=== PATIENT | male | born 1970 | race African-American/Black ===

== ENCOUNTER 2017-04-03 14:37 | Emergency (ER) | payer BC ==
[2017-04-03 14:54] VITALS: PULSE 77; TEMP 98; BMI 23.4
[2017-04-03 14:57] VITALS: BP 150/94
--- NOTE | 2017-04-03 15:47 | PDOC ---
History of Present Illness - General Chief Complaint: Injury Stated Complaint: SIDE PAIN Time Seen by Provider: 04/03/17 15:28 History Source: Patient Exam Limitations: No Limitations - History of Present Illness Initial Comments: 04/03/17 15:45 Patient is a 46-year-old male, denies any significant medical history currently on no medications states that he was playing around within the person fell backwards and her knees fell onto the right side of his chest causing pain to ribs 2 weeks ago, now with pain on inspiration reproducible movement. Denies any respiratory difficulty, no fever. Past Medical History: Denies. Allergies: No known allergies Medications: None Family History: Non-contributory Social History: Denies smoking, alcohol use, or IVDU Review of Systems GENERAL/CONSTITUTIONAL: No fever or chills. No weakness. No weight change. HEAD, EYES, EARS, NOSE AND THROAT: No change in vision. No ear pain or discharge. No sore throat. CARDIOVASCULAR: No chest pain or shortness of breath. RESPIRATORY: No cough, wheezing, or hemoptysis. GASTROINTESTINAL: No nausea, vomiting, diarrhea or constipation. No rectal bleeding. GENITOURINARY: No dysuria, frequency, or change in urination. MUSCULOSKELETAL: No joint or muscle swelling or pain. No neck or back pain. Right lateral torso rib pain SKIN: No rash or easy bruising. No erythema no bruising. NEUROLOGIC: No headache, vertigo, loss of consciousness, or loss of sensation. PSYCHIATRIC: No depression or anxiety. ENDOCRINE: No increased thirst. No abnormal weight change. HEMATOLOGIC/LYMPHATIC: No anemia, easy bleeding, or history of blood clots. ALLERGIC/IMMUNOLOGIC: No hives or skin allergy. No latex allergy. Physical Exam: GENERAL: The patient is awake, alert, and fully oriented, in no acute distress. HEAD: Normal with no signs of trauma. EYES: Pupils equal, round and reactive to light, extraocular movements intact, sclera anicteric, conjunctiva clear. ENT: Ears normal, nares patent, oropharynx clear without exudates. Moist mucous membranes. No uvula deviation NECK: Normal range of motion, supple without lymphadenopathy, JVD, or masses. LUNGS: Breath sounds equal, clear to auscultation bilaterally. No wheezes, and no crackles. HEART: Regular rate and rhythm, normal S1 and S2 without murmur, rub or gallop. ABDOMEN: Soft, nontender, normoactive bowel sounds. No guarding, no rebound. No masses. No bruising or abrasions MUSCULOSKELETAL: Normal range of motion, no edema. No clubbing or cyanosis. No cords, erythema, or tenderness. No CVA Tenderness with fist palpation, pain on palpation and movement to right lateral torso, right ribs. Right lateral torso rib pain] NEUROLOGICAL: Cranial nerves II through XII grossly intact. Normal speech, nomal gait. SKIN: Warm, Dry, normal turgor, no rashe or lesions noted. Past History - Past Medical History Allergies/Adverse Reactions: Allergies Allergy/AdvReac Type Severity Reaction Status Date / Time No Known Allergies Allergy Verified 04/03/17 14:54 Home Medications: Ambulatory Orders Naproxen [Naprosyn -] 500 mg PO BID #20 tablet 04/03/17 Thyroid Disease: No - Surgical History Abdominal Surgery: Yes (umbilical hernia repaired) - Psycho/Social/Smoking Cessation Hx Anxiety: No Suicidal Ideation: No Smoking History: Never smoked Have you smoked in the past 12 months: No Information on smoking cessation initiated: No Hx Alcohol Use: No Drug/Substance Use Hx: No Substance Use Type: None *Physical Exam - Vital Signs Last Vital Signs Temp Pulse Resp BP Pulse Ox 98.0 F 77 18 150/94 100 04/03/17 14:51 04/03/17 14:51 04/03/17 14:51 04/03/17 14:56 04/03/17 14:51 ED Treatment Course - RADIOLOGY Radiology Studies Ordered: Category Date Time Status RIBS RIGHT SIDE [RAD] Stat Radiology 04/03/17 15:33 Ordered Medical Decision Making - Medical Decision Making 04/03/17 15:51 A/P: Patient with right lateral chest, rib pain. Patient sent to x-ray to rule out fracture, 04/03/17 18:01 X-ray demonstrates fracture of the eighth and 10th rib. We'll discharge patient home, pain medication, explained to patient that we do not tape ribs anymore with fractures because rib may become displaced and injure long, he verbalized understanding. Symptoms, follow-up with PMD. *DC/Admit/Observation/Transfer Diagnosis at time of Disposition: Rib fractures Qualifiers: Encounter type: initial encounter Rib fracture type: multiple ribs Fracture type: closed Laterality: right Qualified Code(s): S22.41XA - Multiple fractures of ribs, right side, initial encounter for closed fracture - Discharge Dispostion Disposition: HOME Condition at time of disposition: Stable Admit: No - Prescriptions Prescriptions: Naproxen [Naprosyn -] 500 mg PO BID #20 tablet - Referrals Referrals: Delfino Bishop MD [Primary Care Provider] - - Patient Instructions Printed Discharge Instructions: Rib Fracture Additional Instructions: Please refrain from lifting anything heavier than 10 pounds. Follow-up with Dr. Bishop in one week If any shortness of breath, increased pain, or any other concerns return to ER - Post Discharge Activity
[2017-04-03] MEDS ORDERED: NAPROXEN 500 MG TABLET (FP) PO ONE (18:04)
[2017-04-03] MEDS ORDERED: NAPROXEN 500 MG TABLET (FP) ONE (18:05)
== END 2017-04-03 18:09 | disposition home or self-care (01) ==
LOC: JERFT 14:37 → JER 14:37 → JERFT 18:09
DX: S22.41XA Multiple fractures of ribs, right side, initial encounter for closed fracture (principal); W18.39XA Other fall on same level, initial encounter; Y93.89 Activity, other specified; Y92.9 Unspecified place or not applicable
CPT/HCPCS: 71101-TC-RT; 99281-25

== ENCOUNTER 2018-11-28 17:43 | Emergency (ER) | payer BC ==
[2018-11-28] MEDS ORDERED: KETOROLAC TROMETHAMINE 60 MG/2 ML VIAL IM ONE (18:03)
--- NOTE | 2018-11-28 18:03 | PDOC ---
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 Discharge Disposition - Diagnosis Chest pain - Referrals - Patient Instructions - Post Discharge Activity
[2018-11-28] MEDS ORDERED: KETOROLAC TROMETHAMINE 60 MG/2 ML VIAL ONE (18:12)
[2018-11-28 18:14] VITALS: BP 135/73; PULSE 77; TEMP 98.7; BMI 25.8
--- NOTE | 2018-11-28 18:30 | PDOC ---
History of Present Illness - General Chief Complaint: Pain Stated Complaint: CHEST PAIN Time Seen by Provider: 11/28/18 17:58 - History of Present Illness Initial Comments: 11/28/18 18:23 48-year-old male without comorbidities presents for evaluation of right-sided neck pain and right-sided mid chest pain 2 weeks. Past History - Past Medical History Allergies/Adverse Reactions: Allergies Allergy/AdvReac Type Severity Reaction Status Date / Time No Known Allergies Allergy Verified 04/03/17 14:54 Home Medications: Ambulatory Orders Cyclobenzaprine HCl [Flexeril 10 mg] 10 mg PO HS PRN #10 tablet 11/28/18 Ibuprofen [Motrin -] 600 mg PO TID #30 tablet 11/28/18 COPD: No Thyroid Disease: No - Surgical History Abdominal Surgery: Yes (umbilical hernia repaired) - Suicide/Smoking/Psychosocial Hx Smoking History: Never smoked Have you smoked in the past 12 months: No Information on smoking cessation initiated: No Hx Alcohol Use: No Drug/Substance Use Hx: No Substance Use Type: None Review of Systems - Review of Systems Cardiac (ROS): Yes: Chest Pain Musculoskeletal: Yes: Neck Pain *Physical Exam - Vital Signs Last Vital Signs Temp Pulse Resp BP Pulse Ox 98.7 F 77 18 135/73 100 11/28/18 17:58 11/28/18 17:58 11/28/18 17:58 11/28/18 17:58 11/28/18 17:58 - Physical Exam Comments: 11/28/18 18:23 HEAD: NC/AT EYES: Conjuntiva clear Ears: Canals and TM's normal NOSE: No d/c THROAT: Moist mucous membrances, oral pharanx clear, uvula midline NECK: Supple without adenopathy CARDIAC: S1 S2; there is tenderness about the right costochondral junction around ribs 3 and 4 LUNGS: CTA Full and Equal breath sounds ABDOMEN: Soft NT ND MS: Full ROM in all joints without edema NEUROLOGIC: No gross sensory or motor deficits, NVID SKIN: Normal color and temperature no lesions or rashes 5 out of 5 strength in bilateral upper extremities cervical spine skin color and temperature are normal with full range of motion and tenderness over the right sternocleidomastoid from the clavicle to the mastoid process along the belly of the muscle. No gross sensorimotor deficits neurovascularly intact. Medical Decision Making - Medical Decision Making 11/28/18 18:24 Cervical strain involving the sternocleidomastoid on the right and costochondritis. Will start on a course of anti-inflammatories and Flexeril and have patient follow-up with PCP for further evaluation and treatment options. I' ve explained this to the patient he is in agreement with the plan. *DC/Admit/Observation/Transfer Diagnosis at time of Disposition: Costochondritis, Cervical strain Diagnosis at time of Disposition: (Ruled Out): Chest pain - Discharge Dispostion Disposition: HOME Condition at time of disposition: Stable Decision to Admit order: No - Referrals Referrals: Kelby Jarrett [Non Staff, Medical] - - Patient Instructions Printed Discharge Instructions: DI for Cervical Muscle Strain, Costochondritis , DI for Costochondritis Additional Instructions: Please take the anti-inflammatory as directed. Its one tablet 3 times a day with food. Discontinue the medication if it bothers her stomach. The muscle relaxers one tablet before bedtime and will make you sleepy. Follow-up with your primary care physician in one to 2 days for further evaluation and treatment options and return to the emergency room should symptoms worsen - Post Discharge Activity
== END 2018-11-28 18:33 | disposition home or self-care (01) ==
LOC: JER 17:43 → JERFT 17:43
PROC: 3E0233Z Introduction of Anti-inflammatory into Muscle, Percutaneous Approach (ICD-10-PCS; principal; 2018-11-28)
DX: M94.0 Chondrocostal junction syndrome [Tietze] (principal); S16.1XXA Strain of muscle, fascia and tendon at neck level, initial encounter; X50.9XXA Other and unspecified overexertion or strenuous movements or postures, initial encounter; Y93.89 Activity, other specified; Y92.89 Other specified places as the place of occurrence of the external cause; Y99.8 Other external cause status
CPT/HCPCS: 99281-25

== ENCOUNTER 2019-08-18 11:43 | Emergency (ER) | payer BC ==
[2019-08-18 12:15] VITALS: BP 167/85; PULSE 94; TEMP 98.6; BMI 26.5
--- NOTE | 2019-08-18 12:36 | PDOC ---
History of Present Illness - General Chief Complaint: Pain Stated Complaint: UPPER BACK PAIN/ COUGH Time Seen by Provider: 08/18/19 12:16 History Source: Patient Exam Limitations: Clinical Condition - History of Present Illness Initial Comments: 08/18/19 12:37 Patient with no significant past medical history present with complaint of one- week history of intermittent dry cough and 2-day history of upper back pain with cracking sensation in the upper back when he stretches. Denies shortness of breath, chest pain, numbness or tingling sensation. Denies headache, dizziness, weakness. Patient report calling out of work today and needs to be evaluated before going back to work Is this a multiple visit Asthma Patient?: No Timing/Duration: 1 week Past History - Past Medical History Allergies/Adverse Reactions: Allergies Allergy/AdvReac Type Severity Reaction Status Date / Time No Known Allergies Allergy Verified 08/18/19 12:13 Home Medications: Ambulatory Orders Cyclobenzaprine HCl [Flexeril 10 mg] 10 mg PO HS PRN #10 tablet 11/28/18 Ibuprofen [Motrin -] 600 mg PO TID #30 tablet 11/28/18 Benzonatate [Tessalon Pearls -] 100 mg PO Q8H PRN #20 capsule 08/18/19 Methylprednisolone [Medrol Dose Maxwell] 4 mg PO ASDIR #21 tablet 08/18/19 COPD: No Thyroid Disease: No - Surgical History Abdominal Surgery: Yes (umbilical hernia repaired) - Psycho Social/Smoking Cessation Hx Smoking History: Never smoked Have you smoked in the past 12 months: No Information on smoking cessation initiated: No Hx Alcohol Use: No Drug/Substance Use Hx: No Substance Use Type: None Review of Systems - Review of Systems Able to Perform ROS?: Yes Is the patient limited Green[place]ic proficient: No Constitutional: No: Chills, Fever, Malaise HEENTM: No: Symptoms Reported, See HPI, Eye Pain, Blurred Vision, Tearing, Recent change in vision, Double Vision, Cataracts, Ear Pain, Ocular Prothesis, Ear Discharge, Nose Pain, Nose Congestion, Tinnitus, Nose Bleeding, Hearing Loss , Throat Pain, Throat Swelling, Mouth Pain, Dental Problems, Difficulty Swallowing, Mouth Swelling, Other Respiratory: Yes: Symptoms reported, See HPI, Cough. No: Orthopnea, Shortness of Breath, SOB with Exertion, SOB at Rest, Stridor, Wheezing, Productive cough, Hemoptysis, Other Cardiac (ROS): No: Symptoms Reported, See HPI, Chest Pain, Edema, Irregular Heart Rate, Lightheadedness, Palpitations, Syncope, Chest Tightness, Other ABD/GI: No: Symptoms Reported, Nausea, Vomiting Musculoskeletal: Yes: Symptoms Reported, See HPI, Back Pain (upper back pain) Integumentary: No: Symptoms Reported, See HPI, Change in Hair/Nails Neurological: No: Symptoms reported, Dizziness All Other Systems: Reviewed and Negative *Physical Exam - Vital Signs Last Vital Signs Temp Pulse Resp BP Pulse Ox 98.6 F 94 H 18 167/85 95 08/18/19 12:11 08/18/19 12:11 08/18/19 12:11 08/18/19 12:11 08/18/19 12:11 - Physical Exam 08/18/19 12:34 GENERAL: Well developed, well nourished. Awake and alert. No acute distress. HEENT: Normocephalic, atraumatic. PERRLA, EOMI. No conjunctival pallor. Sclera are non-icteric. Moist mucous membranes. Oropharynx is clear. NECK: Supple. Full ROM. CARDIOVASCULAR: Regular rate and rhythm. No murmurs, rubs, or gallops. Distal pulses are 2+ and symmetric. PULMONARY: No evidence of respiratory distress. Lungs clear to auscultation bilaterally. No wheezing, rales or rhonchi. MUSCULOSKELETAL Normal range of motion at all joints. Mild tenderness to bilateral paravertebral muscle of posterior thoracic spine also at T1-T3. No midline tenderness SKIN: Warm and dry. Normal capillary refill. No rashes. NEUROLOGICAL: Alert, awake, appropriate. Gait is normal without ataxia. PSYCHIATRIC: Cooperative. Good eye contact. Appropriate mood General Appearance: Yes: Nourished, Appropriately Dressed. No: Apparent Distress ED Treatment Course - RADIOLOGY Radiology Studies Ordered: Category Date Time Status CHEST PA & LAT [RAD] Stat Radiology 08/18/19 12:20 Ordered Medical Decision Making - Medical Decision Making 08/18/19 12:38 Patient with no significant past medical history present with complaint of one- week history of intermittent dry cough and 2-day history of upper back pain with cracking sensation in the upper back when he stretches. Denies shortness of breath, chest pain, numbness or tingling sensation. Denies headache, dizziness, weakness. Patient report calling out of work today and needs to be evaluated before going back to work Exam significant for mild tenderness to posterior paravertebral muscle of thoracic spine. Lungs clear to auscultation bilateral. Patient symptoms likely esophageal from cough. Chest x-ray ordered to rule out acute pathology 08/18/19 12:53 Chest x-ray unremarkable. Patient stable for discharge on Tessalon Perles as needed for cough and Medrol Maxwell for dorsalgia with PCP follow-up Discharge - Discharge Information Problems reviewed: Yes Clinical Impression/Diagnosis: Cough in adult, Dorsalgia of thoracic region Condition: Stable Disposition: HOME - Admission No - Additional Discharge Information Prescriptions: Benzonatate [Tessalon Pearls -] 100 mg PO Q8H PRN #20 capsule PRN Reason: Cough Methylprednisolone [Medrol Dose Maxwell] 4 mg PO ASDIR #21 tablet - Follow up/Referral Referrals: Delfino Bishop MD [Primary Care Provider] - - Patient Discharge Instructions Patient Printed Discharge Instructions: DI for Thoracic Back Pain Additional Instructions: X-ray was normal and shows no acute pathology. Your pain is likely caused by cough. Take prescribed medication as prescribed for cough and back pain. Follow-up with primary care as needed. - Post Discharge Activity Work/Back to School Note: Back to Work
== END 2019-08-18 12:48 | disposition home or self-care (01) ==
LOC: JERFT 11:43 → JER 11:43 → JERFT 12:48
DX: M54.6 Pain in thoracic spine (principal); R05 Cough
CPT/HCPCS: 71046-TC-FY; 99281-25

== ENCOUNTER 2019-09-08 11:28 | Emergency (ER) | payer BC ==
[2019-09-08 11:55] VITALS: BP 157/95; PULSE 98; TEMP 98.8; BMI 25.8
[2019-09-08 13:12] LABS: BASO % 1.3 % (0-2.0); EOS % 1.7 % (0-4.5); HEMOGLOBIN 15.5 GM/dL (11.7-16.9); LYMPH % 41.9 % (8-40); MCH 29.3 pg (25.7-33.7); MCHC 33.6 g/dl (32.0-35.9); MEAN CELL VOLUME 87.1 fl (80-96); MEAN PLT VOLUME 8.4 fl (7.5-11.1); MONO % 7.1 % (3.8-10.2); PLATELET COUNT 212 K/MM3 (134-434); RBC 5.28 M/mm3 (4.00-5.60); RDW 13.4 % (11.9-15.9); WHITE BLOOD COUNT 8.3 K/mm3 (4.0-10.0)
[2019-09-08 13:40] LABS: ALBUMIN 4.4 g/dl (3.4-5.0); BILIRUBIN,TOTAL 0.8 mg/dL (0.2-1); BLOOD UREA NITROGEN 12.1 mg/dL (7-18); CALCIUM 9.5 mg/dL (8.5-10.1); CREATININE 0.9 mg/dL (0.55-1.3); POTASSIUM 4.1 mmol/L (3.5-5.1); TOT PROT 7.5 g/dl (6.4-8.2)
--- NOTE | 2019-09-08 15:06 | PDOC ---
History of Present Illness - General Chief Complaint: Back Pain Stated Complaint: UPPER BACK PAIN/COUGHING Time Seen by Provider: 09/08/19 11:55 - History of Present Illness Initial Comments: 09/08/19 15:03 49-year-old male without comorbidities presents for evaluation of cough x2 months with upper back pain no systemic symptoms Past History - Past Medical History Allergies/Adverse Reactions: Allergies Allergy/AdvReac Type Severity Reaction Status Date / Time No Known Allergies Allergy Verified 08/18/19 12:13 Home Medications: Ambulatory Orders Cyclobenzaprine HCl [Flexeril 10 mg] 10 mg PO HS PRN #10 tablet 11/28/18 Ibuprofen [Motrin -] 600 mg PO TID #30 tablet 11/28/18 Benzonatate [Tessalon Pearls -] 100 mg PO Q8H PRN #20 capsule 08/18/19 Methylprednisolone [Medrol Dose Maxwell] 4 mg PO ASDIR #21 tablet 08/18/19 Cyclobenzaprine HCl [Flexeril 10 mg] 10 mg PO HS PRN #10 tablet 09/08/19 Ibuprofen [Motrin -] 600 mg PO TID #30 tablet 09/08/19 COPD: No Thyroid Disease: No - Surgical History Abdominal Surgery: Yes (umbilical hernia repaired) - Psycho Social/Smoking Cessation Hx Smoking History: Former smoker Have you smoked in the past 12 months: No If you are a former smoker, when did you quit?: 2007 Information on smoking cessation initiated: No Hx Alcohol Use: No Drug/Substance Use Hx: No Substance Use Type: None Review of Systems - Review of Systems Constitutional: No: Fever Respiratory: Yes: Cough Musculoskeletal: Yes: Back Pain *Physical Exam - Vital Signs Last Vital Signs Temp Pulse Resp BP Pulse Ox 98.8 F 98 H 19 157/95 98 09/08/19 11:47 09/08/19 11:47 09/08/19 11:47 09/08/19 11:47 09/08/19 11:47 - Physical Exam 09/08/19 15:04 GENERAL: The patient is awake, alert, and fully oriented, in no acute distress. HEAD: Normal with no signs of trauma. EYES: sclera anicteric, conjunctiva clear. ENT: Ears normal tympanic membranes normal oropharynx clear uvula midline NECK: Normal range of motion LUNGS: Breath sounds equal, clear to auscultation bilaterally. No wheezes, and no crackles. Inspiratory stridor on left which cleared with cough; mild left- sided para thoracic musculature spasm and tenderness HEART: S1 and S2 without murmur, rub or gallop. ABDOMEN: Soft, nontender, normoactive bowel sounds. No guarding, no rebound. No masses. EXTREMITIES: Normal range of motion, no edema. No clubbing or cyanosis. No cords, erythema, or tenderness. NEUROLOGICAL: Cranial nerves II through XII grossly intact. Normal speech, normal gait. PSYCH: Normal mood, normal affect. SKIN: Warm, Dry, normal turgor, no rashes or lesions noted. ED Treatment Course - LABORATORY CBC & Chemistry Diagram: 09/08/19 13:01 09/08/19 13:01 - ADDITIONAL ORDERS Additional order review: Laboratory Results 09/08/19 13:01 Sodium 137 Potassium 4.1 Chloride 104 Carbon Dioxide 26 Anion Gap 7 L BUN 12.1 Creatinine 0.9 Est GFR (CKD-EPI)AfAm 115.83 Est GFR (CKD-EPI)NonAf 99.94 Random Glucose 116 H Calcium 9.5 Total Bilirubin 0.8 AST 18 ALT 37 Alkaline Phosphatase 62 Total Protein 7.5 Albumin 4.4 09/08/19 13:01 RBC 5.28 MCV 87.1 MCHC 33.6 RDW 13.4 MPV 8.4 Neutrophils % 48.0 Lymphocytes % 41.9 H Monocytes % 7.1 Eosinophils % 1.7 Basophils % 1.3 - RADIOLOGY Radiology Studies Ordered: Category Date Time Status CHEST CT WITH CONTRAST [CT] Stat CT Scan 09/08/19 13:49 Completed Medical Decision Making - Medical Decision Making 09/08/19 15:04 CAT scan negative chronic cough negative CAT scan muscle strain of the thoracic spine Flexeril Motrin follow-up with primary care physician Discharge - Discharge Information Problems reviewed: Yes Clinical Impression/Diagnosis: Cough in adult, Strain of fascia at thorax level Condition: Stable Disposition: HOME - Admission No - Follow up/Referral Referrals: Delfino Bishop MD [Primary Care Provider] - - Patient Discharge Instructions Additional Instructions: Motrin and Flexeril for back pain. Return to the emergency room for worsening symptoms and without fail follow-up with your primary care physician in 2 to 3 days for further evaluation and treatment options. Your CAT scan today was normal. - Post Discharge Activity
== END 2019-09-08 15:22 | disposition home or self-care (01) ==
LOC: JERFT 11:28
DX: S29.012A Strain of muscle and tendon of back wall of thorax, initial encounter (principal); X58.XXXA Exposure to other specified factors, initial encounter; Y93.89 Activity, other specified; Y92.89 Other specified places as the place of occurrence of the external cause; Y99.8 Other external cause status
CPT/HCPCS: 36415; 71260-TC; 80053; 85025; 99282-25; Q9967